=== PATIENT | female | born 1960 | race Caucasian/White ===

== ENCOUNTER 2021-07-24 13:03 | Observation (INO) | payer SELFPAY ==
[~2021-07-24] VITALS: Ht 154.9 cm; Wt 83.9 kg
[2021-07-24] MEDS ORDERED: HYDRALAZINE HCL 20 MG/ML VIAL IV STA (13:19)
[2021-07-24] MEDS ORDERED: ASPIRIN 325 MG TAB PO ONE (13:30)
[2021-07-24 13:33] LABS: BASOPHILS # (AUTO) 0.1 (0.0-0.1); BASOPHILS % 0.7 % (0.0-1.0); EOSINOPHILS # (AUTO) 0.3 (0.0-0.4); HEMATOCRIT 41.9 % (34.2-44.1); HEMOGLOBIN 14.1 g/dL (12.0-16.0); LYMPHOCYTES # (AUTO) 1.8 (1.0-3.2); MEAN CORPUSCULAR HEMOGLOBIN 29.4 pg (28-32); MEAN CORPUSCULAR HGB CONC 33.7 g/dL (31-35); MEAN CORPUSCULAR VOLUME 87.3 fL (81-99); MONOCYTES # (AUTO) 0.6 (0.2-0.8); MONOCYTES % 6.1 % (4.4-11.3); NEUTROPHILS % 71.6 % (38.7-80.0); PLATELET COUNT 302 x10e3/uL (140-360)
[2021-07-24 13:49] LABS: ALBUMIN 4.5 g/dL (3.5-5.0); ALBUMIN/GLOBULIN RATIO 1.3 (0.8-2.0); ANION GAP 15.5 mmol/L (8-16); CALCIUM 9.8 mg/dL (8.4-10.2); CREATININE, SERUM 0.77 mg/dL (0.57-1.11); POTASSIUM 3.5 mmol/L (3.5-5.1)
[2021-07-24 14:37] LABS: FREE THYROXINE INDEX 2.4884 (1.4-3.8); THYROID STIMULATING HORMONE 0.898 uIU/mL (0.350-4.940)
[2021-07-24] MEDS ORDERED: SODIUM CHLORIDE FLUSH 10 ML SYR INJ PRN (14:45)
[2021-07-24] MEDS ORDERED: ONDANSETRON HCL INJ 2MG/ML 2ML 2 MG/ML VIAL IV PRN (14:45)
[2021-07-24] MEDS ORDERED: ASPIRIN 81 MG CHEW TAB PO ONE (14:45)
[2021-07-24] MEDS ORDERED: Morphine 2mg Syringe 2 MG/ML SYR IV PRN (14:45)
[2021-07-24 16:49] LABS: CREATINE KINASE MB 1.6 ng/mL (0-5.0)
[2021-07-24 16:50] VITALS: BP 167/68
[2021-07-24 17:55] VITALS: BP 156/84
[2021-07-24 18:03] VITALS: BP 156/84
[2021-07-24] MEDS ORDERED: PANTOPRAZOLE SO20 MG PO (18:18)
[2021-07-24] MEDS ORDERED: HYDROCHLOROTH12.5 MG PO (18:18)
[2021-07-24] MEDS ORDERED: BENICAR20 MG PO (18:18)
[2021-07-24] MEDS ORDERED: METOPROLOL SUCC25 MG PO (18:18)
[2021-07-24] MEDS ORDERED: ATORVASTATIN CA20 MG PO (18:18)
[2021-07-24] MEDS ORDERED: AMLODIPINE BESYL5 MG PO (18:18)
[2021-07-24] MEDS ORDERED: EUTHYROX75 MCG PO (18:18)
[2021-07-24] MEDS ORDERED: MIRAPEX0.125 MG PO (18:18)
[2021-07-24] MEDS ORDERED: LEXAPRO10 MG PO (18:18)
[2021-07-24 20:00] VITALS: BP 140/64
[2021-07-25] VITALS (8 sets, daily range): BP systolic 121–142; BP diastolic 57–69
[2021-07-25 02:28] LABS: CREATINE KINASE 111 IU/L (29-168)
[2021-07-25 06:57] LABS: CREATINE KINASE 104 IU/L (29-168)
[2021-07-25 08:11] LABS: CHOL/HDL RATIO 3.2 (3.0-3.6)
[2021-07-25] MEDS ORDERED: PANTOPRAZOLE SOD 40 MG TABEC PO PRN (08:30)
[2021-07-25] MEDS: OLMESARTAN 20 MG TAB PO SCH (10:40)
[2021-07-25] MEDS: HYDROCHLOROTHIAZIDE 25 MG TAB PO SCH (10:40)
[2021-07-25] MEDS: ASPIRIN 81 MG ENTERIC COATED PO SCH (10:40)
[2021-07-25] MEDS: METOPROLOL SUCCINATE 25 MG TAB XL PO SCH (17:13)
[2021-07-25] MEDS: AMLODIPINE BESYLATE 5 MG TAB PO SCH (17:13)
[2021-07-25] MEDS: ATORVASTATIN 20 MG TAB PO SCH (17:13)
[2021-07-25] MEDS ORDERED: ESCITALOPRAM OXALATE 10 MG TAB PO SCH (21:00)
[2021-07-25] MEDS ORDERED: PRAMIPEXOLE DIHYDROCHLORIDE 0.25 MG TAB PO SCH (21:00)
[2021-07-26 00:03] VITALS: BP 121/68
[2021-07-26 04:00] VITALS: BP 120/64
[2021-07-26] MEDS ORDERED: LEVOTHYROXINE SODIUM 75 MCG TAB PO SCH (07:30)
[2021-07-26 08:07] VITALS: BP 120/64
[2021-07-26 08:30] VITALS: BP 140/73
[2021-07-26] MEDS: ASPIRIN 81 MG ENTERIC COATED PO SCH (09:28)
[2021-07-26] MEDS: PANTOPRAZOLE SOD 40 MG TABEC PO SCH ×2 (09:28→17:41)
[2021-07-26] MEDS: HYDROCHLOROTHIAZIDE 25 MG TAB PO SCH (09:29)
[2021-07-26] MEDS: OLMESARTAN 20 MG TAB PO SCH (09:29)
[2021-07-26 11:36] VITALS: BP 126/59
[2021-07-26] MEDS: AMLODIPINE BESYLATE 5 MG TAB PO SCH (12:48)
[2021-07-26 16:23] VITALS: BP 133/63
[2021-07-26] MEDS: ATORVASTATIN 20 MG TAB PO SCH (17:41)
[2021-07-26] MEDS: METOPROLOL SUCCINATE 25 MG TAB XL PO SCH (17:42)
[2021-07-26] MEDS ORDERED: PANTOPRAZOLE SO40 MG PO (18:01)
== END 2021-07-26 18:28 | disposition home or self-care (01) ==
LOC: ER 13:14 → ERHOLD 14:33 → MED/SURG 16:50
PROVIDERS: ADMIT Family Medicine; ATTEND Family Medicine
DX: R07.89 Other chest pain (principal); I10 Essential (primary) hypertension; E03.9 Hypothyroidism, unspecified; E78.5 Hyperlipidemia, unspecified; I16.0 Hypertensive urgency; F41.9 Anxiety disorder, unspecified; K21.00 Gastro-esophageal reflux disease with esophagitis, without bleeding; Z82.49 Family history of ischemic heart disease and other diseases of the circulatory system; Z88.2 Allergy status to sulfonamides; Z88.8 Allergy status to other drugs, medicaments and biological substances; Z20.822 Contact with and (suspected) exposure to COVID-19
CPT/HCPCS: 36415 ×2; 71045; 80053; 80061; 82550 ×2; 82553 ×2; 83880; 84436; 84443; 84479; 84484 ×2; 85025; 93005; 93306; 99283; G0378 ×3; J0360; J2270; S0164; U0002